=== PATIENT | female | born 1940 | race Caucasian/White ===

== ENCOUNTER 2020-06-29 06:53 | Outpatient (RCR) | payer MEDICARE, SELFPAY ==
[2020-06-29] MEDS: COVID-19 VACC, MRNA(PFIZER)/PF 30 MCG/0.3 ML SYRINGE IM (16:27)
[2020-07-20] MEDS: COVID-19 VACC, MRNA(PFIZER)/PF 30 MCG/0.3 ML SYRINGE IM (15:55)
== END 2020-10-03 23:59 ==
LOC: IMMUN 06:53
PROVIDERS: PCP Family Medicine; Referring Provider Family Medicine; Visit Provider Family Medicine
DX: Z23 Encounter for immunization (principal)
CPT/HCPCS: 0001A; 0002A; 91300

== ENCOUNTER → 2024-08-26 | Outpatient (CLI) | payer MEDICARE, SELFPAY ==
[2024-08-26 14:23] LABS: Hematocrit 46.1 % (37-47); Hemoglobin 14.6 g/dL (12.0-15.0); Mean Corp Hgb Conc 31.7 g/dL (32-36); Mean Corpuscular Hgb 30.9 pg (27.0-32.0); Mean Corpuscular Volume 97.7 fL (81-99); Mean Platelet Vol. 9.1 fl (6.2-12.0); Platelet Count 225 K/mm3 (150-450); RBC Distribution Width CV 13.2 % (11.6-14.6); RBC Distribution Width SD 46.9 fl (35.1-43.9); Red Blood Count 4.72 M/mm3 (4.2-5.4); White Blood Count 7.9 K/mm3 (4.4-11.0)
[2024-08-26 15:23] LABS: Anion Gap 10 (5-15); BUN 48 mg/dL (4-19); BUN/Creat Ratio 20.1 RATIO (10-20); Calcium,Total 9.4 mg/dL (7.6-11.0); Carbon Dioxide 25.1 mmol/L (21.0-32.0); Chloride 106 mmol/L (98-108); Creatinine, Serum 2.38 mg/dL (0.70-1.20); EST Glomerular Filtration Rate 20 (>60); Glucose 80 mg/dL (70-99); Potassium 4.7 mmol/L (3.3-5.1); Sodium Level 141 mmol/L (133-145)
== END | disposition home or self-care (01) ==
PROVIDERS: PCP Family Medicine; Referring Provider Surgery Trauma Surgery; Visit Provider Surgery Trauma Surgery
DX: Z01.818 Encounter for other preprocedural examination (principal)
CPT/HCPCS: 36415; 80048; 85027

== ENCOUNTER 2024-09-02 08:22 | Day surgery (SDC) | payer MEDICARE, SELFPAY ==
--- NOTE | 2024-08-30 14:07 | PAT.ANESEVAL ---
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 When Was Last Pacemaker Check QUESTION #4 FULL TEXT: You/Your Family Experience fever (hyperthermia) with Anesthesia Last Oral Intake Last Oral intake: Last Oral Intake NPO since Meds taken in AM with sips of water? 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 Female Yes 08/23/24 14:57 HX of Motion Sickness No 08/23/24 14:57 HX of N/V After Surgery No 08/23/24 14:57 Non-Smoker Yes 08/23/24 14:57 Duration of Surgery greater No 08/23/24 14:57 than 60 minutes Number of Risk Factors 2 08/23/24 14:57 PONV Score Moderate Risk 08/23/24 14:57 Height & Weight Height & Weight: Anesthesia: Height & Weight Height 5 ft 2 in 08/16/24 14:46 Respiratory Assessment Respiratory Assessment - regional owner operator truck driver: Respiratory Tract Infection Hx - regional owner operator truck driver Hx Respiratory Tract Infection No 08/23/24 14:57 STOP Sleep Apnea STOP Sleep Apnea - regional owner operator truck driver: STOP Sleep Apnea - regional owner operator truck driver Hx Hypertension Yes: CONTROLLED WITH MED 08/23/24 14:57 Hx Sleep Apnea No 08/23/24 14:57 CPAP BIPAP Do you snore loudly (louder No 08/23/24 14:57 than talking or can be heard Do you often feel tired/ No 08/23/24 14:57 fatigued/ sleepy during daytime? Has anyone observed you stop No 08/23/24 14:57 breathing during sleep? STOP Results Negative 08/23/24 14:57 QUESTION #5 FULL TEXT : Do you snore loudly (louder than talking or can be heard through closed doors)? 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 Tobacco Use Smoking Status Former smoker 08/23/24 14:57 Hx Tobacco Use No 08/23/24 14:57 Years Smoking Packs Smoked per Day Smoking Cessation Date was No - quit smoking greater 08/23/24 14:57 within the last 15 years than 15 years ago Hx Smoking Cessation Date 05/07/09 08/23/24 14:57 Hx Smoking Cessation Counseling Hematologic Medial History Hematologic Hx - regional owner operator truck driver: Hematologic Medical Hx - change management Hx of Blood Transfusion No 08/23/24 14:57 Hx of Transfusion in last 3 No 08/23/24 14:57 Months Date of Last Transfusion (if within last 3 months) Ever experience any problems No 08/23/24 14:57 with transfusion(s)? Specify any problems Hx of Preganancy in last 3 N/A 08/23/24 14:57 Months Nurse Filling Out Transfusion [facility]BU[facility] 08/23/24 14:57 & Questions: Date: 08/23/24 08/23/24 14:57 Time: 15:03 08/23/24 14:57 Patient unable to answer at this time (ie. confused, unrespo /Reproduction History /Reproductive History - regional owner operator truck driver: /Reproductive Hx- regional owner operator truck driver Hx Now No 08/23/24 14:57 Gestational Age (in weeks): EDC: Hx Hx Para Hx Section SAB No 08/23/24 14:57 PFSH Medical History (Updated 08/23/24 @ 15:12 by Jennifer Gill) Wears hearing aid Loss of hearing Wears glasses Wears dentures Post-menopausal Cancer Bipolar disorder Hypothyroid Diabetes Thyroid disease Ambulates with cane Walker as ambulation aid History of renal disease Spinal stenosis Tremor of both hands Arthritis Shortness of breath on exertion Former smoker Hypertension Femur fracture CKD (chronic kidney disease) Type 2 diabetes mellitus Home Medications ?Medication ?Instructions ?Recorded ?Last Taken ?Type albuterol sulfate 90 mcg/actuation 2 puff inhalation Q4H PRN 07/29/24 Unknown History aerosol inhaler shortness of breath or wheezing aripiprazole 5 mg tablet (Abilify) 5 mg PO QDAY 07/29/24 Unknown History buprenorphine 10 mcg/hour weekly 1 patch transdermal Q7D 07/29/24 Unknown History transdermal patch bupropion HCl 300 mg 24 hr tablet, 300 mg PO QAM 07/29/24 Unknown History extended release (Wellbutrin XL) empagliflozin 25 mg tablet 25 mg PO QAM 07/29/24 Unknown History (Jardiance) fluticasone propionate 50 1 spray intranasal QDAY PRN nasal 07/29/24 Unknown History mcg/actuation nasal congestion spray,suspension levothyroxine 50 mcg tablet 50 mcg PO QDAY 07/29/24 Unknown History (Synthroid) metoprolol succinate 50 mg 50 mg PO QDAY 07/29/24 Unknown History tablet,extended release 24 hr oxycodone-acetaminophen 5 mg-325 1 tab PO Q8H PRN pain 07/29/24 Unknown History mg tablet quetiapine 25 mg tablet (Seroquel) 25 mg PO QHS 07/29/24 Unknown History torsemide 10 mg tablet 10 mg PO QDAY PRN FLUID RETENTION 07/29/24 Unknown History verapamil 360 mg 24 hr 360 mg PO QHS 07/29/24 Unknown History capsule,extended release cyanocobalamin (vitamin B-12) 1,000 mcg PO QDAY 08/16/24 Unknown History 1,000 mcg capsule docusate sodium 50 mg capsule 50 mg PO TID 08/16/24 Unknown History (Colace Clear) finerenone 10 mg tablet (Kerendia) 10 mg PO QDAY 08/16/24 Unknown History vuwfdgod-rxymymon-msxdh acid 240 1 tab PO QDAY 08/16/24 Unknown History mcg-vit K1 150 mcg-herb 357 tablet (Alive Women's 50 Plus Ultra Multivitamin) sevelamer carbonate 800 mg tablet 800 mg PO TID 08/16/24 Unknown History Allergy/AdvReac Type Severity Reaction Status Date / Time No Known Allergies Allergy Verified 08/23/24 14:52 Family History Other Diabetes Heart disease Hypercholesterolemia Hypertension Surgical History (Updated 08/23/24 @ 15:12 by Jennifer Gill) H/O local excision of skin lesion S/P open reduction and internal fixation (ORIF) of fracture of lateral condyle of right femur S/P open reduction and internal fixation (ORIF) of fracture of lateral condyle of left femur Social History Smoking Status: Former smoker alcohol intake: never substance use type: does not use additional social history: Denies daily aspirin or ibuprofen use. Audit: Pertinent Findings Current Visit Impressions Current Visit Impressions: Creatinine is stable from past records compared to most recent result and has known history of CKD5. Recommendation Anesthesia Recommendation Anesthesia recommendation: OPTIMIZED for anesthesia
[2024-09-02] VITALS (9 sets, daily range): BP systolic 118–171; BP diastolic 40–70; PULSE 38–55; RESP 16–18; TEMP 36.6–37; O2SAT 92–97; BMI 36.3
--- NOTE | 2024-09-02 09:01 | EKG12_ITS ---
Test Reason : PRE OP Blood Pressure : */* mmHG Vent. Rate : 40 BPM Atrial Rate : 40 BPM P-R Int : 148 ms QRS Dur : 94 ms QT Int : 502 ms P-R-T Axes : * -18 90 degrees QTcB Int : 409 ms Marked sinus bradycardia Abnormal ECG No previous ECGs available Confirmed by Kartik Santiago ([id number]), graphic editor BECKIE TAPIA ([id number]) on 09/06/2024 11:57:32 AM Referred By: Tez Cm Confirmed By: Kartik Santiago
[2024-09-02] MEDS: 0.9% Normal Saline (500mL Bag) 500 ML 15 ML IV (09:10)
--- NOTE | 2024-09-02 10:14 | PCM.PRE.AN2 ---
ASA Classification* ASA Classification ASA Classification: 3 Assessment & Plan Anesthesia* Anesthesia Assessment Anesthesia Assessment: Discussed sedation and/or anesthesia options, risks, benefits, and alternatives with patient/parents/legal guardian/POA. Questions invited. The patient/parents/legal guardian/POA seems to understand and agrees to proceed with anesthesia plan. Reviewed the physical assessment, medical history, allergy history and patient home medications list prior to surgery/procedure/anesthetic and documented any changes. Performed airway and anesthesia risk assessments. Anesthesia Type Anesthesia Type: MAC History Source History Obtained from:: Patient and Chart Anesthesia Focused Assessment* Temperature: 97.8 F Pulse Rate: 38 Blood Pressure: 171/40 Respiratory Rate: 18 Pulse Ox: 97 Oxygen Delivery Method: Room Air Airway Assessment Mouth opens: >3 cm Mallampati Score: III Teeth Condition: Dentures (Full upper and lower dentures. They are out.) Neck Range of motion (ROM): Limited ROM (Slight decrease in extension) Focused Labs Anesthesia Preop lab: CBC WBC 7.9 K/mm3 (4.4-11.0) 08/26/24 13:51 08/26/24 RBC 4.72 M/mm3 (4.2-5.4) 08/26/24 13:51 08/26/24 Hgb 14.6 g/dL (12.0-15.0) 08/26/24 13:51 08/26/24 Hct 46.1 % (37-47) 08/26/24 13:51 08/26/24 Plt Count 225 K/mm3 (150-450) 08/26/24 13:51 08/26/24 CHEMISTRY Potassium 4.7 mmol/L (3.3-5.1) 08/26/24 13:51 08/26/24 Sodium 141 mmol/L (133-145) 08/26/24 13:51 08/26/24 BUN 48 mg/dL (4-19) H 08/26/24 13:51 08/26/24 Creatinine 2.38 mg/dL (0.70-1.20) H 08/26/24 13:51 08/26/24 Glucose 80 mg/dL (70-99) 08/26/24 13:51 08/26/24 COAG Pre-Assessment Diagnosis/Proposed Procedure Planned Operative Procedure(s): (R) Right Arm Arteriovenous Fistula,Creation Anesthesia History 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 When Was Last Pacemaker Check QUESTION #4 FULL TEXT: You/Your Family Experience fever (hyperthermia) with Anesthesia Last Oral Intake Last Oral intake: Last Oral Intake NPO since 05:00 09/02/24 09:20 Meds taken in AM with sips of Yes 09/02/24 09:20 water? 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 Female Yes 08/23/24 14:57 HX of Motion Sickness No 08/23/24 14:57 HX of N/V After Surgery No 08/23/24 14:57 Non-Smoker Yes 08/23/24 14:57 Duration of Surgery greater No 08/23/24 14:57 than 60 minutes Number of Risk Factors 2 08/23/24 14:57 PONV Score Moderate Risk 08/23/24 14:57 Height & Weight Height & Weight: Anesthesia: Height & Weight Height 5 ft 2 in 09/02/24 09:20 Weight: 90.3 kg 09/02/24 09:20 Body Mass Index (BMI) 36.3 09/02/24 09:20 Respiratory Assessment Respiratory Assessment - real estate investor: Respiratory Tract Infection Hx - real estate investor Hx Respiratory Tract Infection No 08/23/24 14:57 STOP Sleep Apnea STOP Sleep Apnea - real estate investor: STOP Sleep Apnea - real estate investor Hx Hypertension Yes: CONTROLLED WITH MED 08/23/24 14:57 Hx Sleep Apnea No 08/23/24 14:57 CPAP BIPAP Do you snore loudly (louder No 08/23/24 14:57 than talking or can be heard Do you often feel tired/ No 08/23/24 14:57 fatigued/ sleepy during daytime? Has anyone observed you stop No 08/23/24 14:57 breathing during sleep? STOP Results Negative 08/23/24 14:57 QUESTION #5 FULL TEXT : Do you snore loudly (louder than talking or can be heard through closed doors)? 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 Specify any problems Hx of Preganancy in last 3 N/A 08/23/24 14:57 Months Nurse Filling Out Transfusion [facility] 08/23/24 14:57 & Questions: Date: 08/23/24 08/23/24 14:57 Time: 15:03 08/23/24 14:57 Patient unable to answer at this time (ie. confused, unrespo /Reproduction History /Reproductive History - real estate investor: /Reproductive Hx- real estate investor Hx Now No 08/23/24 14:57 Gestational Age (in weeks): EDC: Hx Hx Para Hx Section SAB No 08/23/24 14:57 Active Medications Active Medications: Current Medications Generic Name Dose Route Start Last Admin Trade Name Freq PRN Reason Stop Dose Admin Cefazolin Sodium 2 gm/ Sodium 110 mls @ 150 mls/hr 09/02/24 10:30 Chloride IV 09/02/24 11:13 INTRAOP ONE Sodium Chloride 500 mls @ 0 mls/hr 09/02/24 08:30 09/02/24 09:10 IV 15 mls/hr .Q0M XOCHILT Administration KVO PFSH Medical History Wears hearing aid Loss of hearing Wears glasses Wears dentures Post-menopausal Cancer Bipolar disorder Hypothyroid Diabetes Thyroid disease Ambulates with cane Walker as ambulation aid History of renal disease Spinal stenosis Tremor of both hands Arthritis Shortness of breath on exertion Former smoker Hypertension Femur fracture CKD (chronic kidney disease) Type 2 diabetes mellitus Home Medications ?Medication ?Instructions ?Recorded ?Last Taken ?Type albuterol sulfate 90 mcg/actuation 2 puff inhalation Q4H PRN 07/29/24 Unknown History aerosol inhaler shortness of breath or wheezing aripiprazole 5 mg tablet (Abilify) 5 mg PO QDAY 07/29/24 09/02/24 05:00 History buprenorphine 10 mcg/hour weekly 1 patch transdermal Q7D 07/29/24 08/27/24 History transdermal patch bupropion HCl 300 mg 24 hr tablet, 300 mg PO QAM 07/29/24 09/02/24 05:00 History extended release (Wellbutrin XL) empagliflozin 25 mg tablet 25 mg PO QAM 07/29/24 08/28/24 History (Jardiance) fluticasone propionate 50 1 spray intranasal QDAY PRN nasal 07/29/24 Unknown History mcg/actuation nasal congestion spray,suspension levothyroxine 50 mcg tablet 50 mcg PO QDAY 07/29/24 09/02/24 05:00 History (Synthroid) metoprolol succinate 50 mg 50 mg PO QDAY 07/29/24 09/02/24 05:00 History tablet,extended release 24 hr oxycodone-acetaminophen 5 mg-325 1 tab PO Q8H PRN pain 07/29/24 09/02/24 05:00 History mg tablet quetiapine 25 mg tablet (Seroquel) 25 mg PO QHS 07/29/24 09/01/24 21:30 History torsemide 10 mg tablet 10 mg PO QDAY PRN FLUID RETENTION 07/29/24 09/01/24 History verapamil 360 mg 24 hr 360 mg PO QHS 07/29/24 09/01/24 18:00 History capsule,extended release cyanocobalamin (vitamin B-12) 1,000 mcg PO QDAY 08/16/24 09/01/24 History 1,000 mcg capsule docusate sodium 50 mg capsule 50 mg PO TID 08/16/24 09/02/24 05:00 History (Colace Clear) finerenone 10 mg tablet (Kerendia) 10 mg PO QDAY 08/16/24 09/02/24 05:00 History qpiaqnss-tzvmszoh-jwpxg acid 240 1 tab PO QDAY 08/16/24 09/01/24 History mcg-vit K1 150 mcg-herb 357 tablet (Alive Women's 50 Plus Ultra Multivitamin) sevelamer carbonate 800 mg tablet 800 mg PO TID 08/16/24 09/01/24 17:00 History Allergy/AdvReac Type Severity Reaction Status Date / Time Fish Containing Products AdvReac Intermediate Hives Verified 09/02/24 09:40 shellfish derived AdvReac Intermediate Hives Verified 09/02/24 09:40 Family History Other Diabetes Heart disease Hypercholesterolemia Hypertension Surgical History H/O local excision of skin lesion S/P open reduction and internal fixation (ORIF) of fracture of lateral condyle of right femur S/P open reduction and internal fixation (ORIF) of fracture of lateral condyle of left femur Social History Smoking Status: Former smoker alcohol intake: never substance use type: does not use additional social history: Denies daily aspirin or ibuprofen use. Review of Systems (Anesthesia) ROS Narrative System reviewed and no additional complaints, except as documented.
--- NOTE | 2024-09-02 10:50 | PCM.HP.BLA ---
History and Physical Allergies No Known Allergies Allergy (Unverified 08/16/24 14:34) Medications ?Medication ?Instructions ?Recorded ?Confirmed ?Type albuterol sulfate 90 mcg/actuation 2 puff inhalation Q4H PRN 07/29/24 07/29/24 History aerosol inhaler aripiprazole 5 mg tablet (Abilify) 5 mg PO QDAY 07/29/24 07/29/24 History buprenorphine 10 mcg/hour weekly 1 patch transdermal Q7D 07/29/24 07/29/24 History transdermal patch bupropion HCl 300 mg 24 hr tablet, 300 mg PO QAM 07/29/24 07/29/24 History extended release (Wellbutrin XL) empagliflozin 25 mg tablet 25 mg PO QAM 07/29/24 07/29/24 History (Jardiance) fluticasone propionate 50 1 spray intranasal QDAY PRN 07/29/24 07/29/24 History mcg/actuation nasal spray,suspension levothyroxine 50 mcg tablet 50 mcg PO QDAY 07/29/24 07/29/24 History (Synthroid) metoprolol succinate 50 mg 50 mg PO QDAY 07/29/24 07/29/24 History tablet,extended release 24 hr oxycodone-acetaminophen 5 mg-325 1 tab PO Q8H PRN 07/29/24 07/29/24 History mg tablet quetiapine 25 mg tablet (Seroquel) 37.5 mg PO QDAY 07/29/24 07/29/24 History torsemide 10 mg tablet 10 mg PO QDAY PRN 07/29/24 07/29/24 History verapamil 360 mg 24 hr 360 mg PO QAM 07/29/24 07/29/24 History capsule,extended release cyanocobalamin (vitamin B-12) 1,000 mcg PO QDAY 08/16/24 08/16/24 History 1,000 mcg capsule docusate sodium 50 mg capsule 50 mg PO TID 08/16/24 08/16/24 History (Colace Clear) finerenone 10 mg tablet (Kerendia) 10 mg PO QDAY 08/16/24 08/16/24 History idcrolpn-ejcslrtd-ndkvk acid 240 1 tab PO QDAY 08/16/24 08/16/24 History mcg-vit K1 150 mcg-herb 357 tablet (Alive Women's 50 Plus Ultra Multivitamin) sevelamer carbonate 800 mg tablet 800 mg PO TID 08/16/24 08/16/24 History Have you fallen in the past year?: No PFSH Medical History Femur fracture CKD (chronic kidney disease) Type 2 diabetes mellitus Surgical History S/P open reduction and internal fixation (ORIF) of fracture of lateral condyle of right femur S/P open reduction and internal fixation (ORIF) of fracture of lateral condyle of left femur Family History Other Diabetes Heart disease Hypercholesterolemia Hypertension Social History Smoking Status: Former smoker alcohol intake: never substance use type: does not use additional social history: Denies daily aspirin or ibuprofen use. HPI HPI HPI: ELOISE SHORE, is a 83 F who presents to the office today for evaluation for dialysis access. She has been followed for several years chronic renal decline due to HTN/DM and medication with lithium treating bipolar disorder. She is right hand dominant, no prior arm or clavicle fractures/pacer/picc/node dissection. She had vein mapping at an outside facility with reports available. ROS General General: No weight change, fatigue, colon cancer or breast cancer HEENT HEENT: No difficulty swallowing, eye surgery or swollen glands Endo Endocrine: Yes thyroid disease and diabetes mellitus; No thyroid cancer Skin Skin: No rash or changing moles Musc Musculoskeletal: Yes back problems and arthritis; No rheumatoid arthritis or gout Cardio Cardiovascular: Yes high blood pressure; No murmur, pacemaker, heart disease, atrial fibrillation, heart attack or heart stent Psych Psychiatric: No depression or anxiety Resp Respiratory: Yes shortness of breath, No sleep apnea, No cough, No COPD, No asthma and No emphysema Gastro Gastrointestinal: No abdominal pain, No nausea or vomiting, No diarrhea, No constipation, No blood in stool, No acid reflux, No hemorrhoids, No ulcers, No gallbladder problem and No black,tarry stools [place] Hematologic: No blood thinners, No blood disorders, No bleeding, No anemia and No blood clots Neuro Neurologic: No numbness, No tingling and No other (Stroke/TIA) Exam Const General: cooperative, healthy appearing, comfortable, no acute distress and well developed Nutritional Appearance: well nourished Orientation: alert, awake and oriented x3 HENMT Head: normocephalic and atraumatic Ears: hearing grossly normal bilaterally Nose: external nose normal Eyes General: appearance normal, both eyes and all related structures EOM: EOM intact bilaterally Neck Neck: normal visual inspection, full ROM and trachea midline Resp Effort & Inspection: normal respiratory effort, able to speak in complete sentences, symmetric chest movement, no audible wheezes, not labored, no stridor and no use of accessory muscles Cardio Rate: regular rate Rhythm: regular rhythm Pulses: brachial pulses present and radial pulses present Skin General: no rashes or lesions noted and no erythema Wounds: no wounds Neuro Cranial Nerves: CN's II-XI intact bilaterally and EOM intact bilaterally Speech: speech normal Gait: normal gait Motor: strength 5/5 throughout Sensory Exam: no sensory deficits noted Psych Appearance: grossly normal and well kempt Mental Status: mental status grossly normal Mood: congruent mood Speech and Movement: speech and movement normal Thought Content: normal Judgment: judgment good Coding Level of Care Code Off vis,new,level 4 Diagnoses Stage 4 chronic kidney disease N18.4 Chronic kidney disease stage: stage 4 (GFR 15-29) Assessment and Plan Assessment and Plan (1) CKD (chronic kidney disease): Status: Chronic Qualifiers: Chronic kidney disease stage: stage 4 (GFR 15-29) Qualified Code(s): N18.4 - Chronic kidney disease, stage 4 (severe) Plan: -vein mapping reveals adequate right basilic, upper and lower arm cephalic -also reveals very small caliber right radial artery and left brachial artery not ideal to support access creation -plan for right upper arm cephalic fistula creation
[2024-09-02 11:22] LABS: Bedside Glucose 103 mg/dL (74-106)
[2024-09-02] MEDS: Cefazolin 2 GM in 0.9% Normal Saline (100mL Bag) 100 ML IV (11:42)
[2024-09-02] MEDS: Protamine Sulfate 50 MG/5 ML Vial IV (11:59)
[2024-09-02] MEDS: Heparin 10,000 UNITS/10 ML Vial 10000 UNITS (12:25)
--- NOTE | 2024-09-02 13:13 | DCINST_ITS ---
Discharge Instructions Diet Discharge Diet: No restrictions Activity May shower in (days): 2 Lifting Restrictions: do not lift > 20 lbs with right arm for 3 weeks Additional Activity Instructions:: do not submerge incision for 3 weeks Dressing / Incision Call your doctor if your incision/area has: Sudden Increased Bleeding, Increased Pain/ Swelling, Increased Redness and Foul Smelling Discharge Call your doctor if you observe: Coldness, Increased Pain and Numbness or Tingling Remove Dressing in: 2 days Cleanse incision/area with: Soap & Water Follow Up Care Test Results: Test results from this visit will be discussed in further detail at your follow- up appointment, if applicable. Discharge Plan Admission Attending Provider: Tez Cm Primary Care Provider: Nallely Bowen Instructions Print Language: Persian Discharge Orders/Prescriptions Prescriptions: New oxycodone 5 mg tablet 5 mg PO Q8H PRN (Reason: pain) 1 Days Qty: 3 0RF Continued metoprolol succinate 50 mg tablet extended release 24 hr 50 mg PO QDAY albuterol sulfate 90 mcg/actuation HFA aerosol inhaler 2 puff inhalation Q4H PRN (Reason: shortness of breath or wheezing) buprenorphine 10 mcg/hour patch weekly 1 patch transdermal Q7D oxycodone-acetaminophen 5-325 mg tablet 1 tab PO Q8H PRN (Reason: pain) aripiprazole [Abilify] 5 mg tablet 5 mg PO QDAY bupropion HCl [Wellbutrin XL] 300 mg tablet extended release 24 hr 300 mg PO QAM quetiapine [Seroquel] 25 mg tablet 25 mg PO QHS fluticasone propionate 50 mcg/actuation spray,suspension 1 spray intranasal QDAY PRN (Reason: nasal congestion) Rx Instructions: administer into each nostril levothyroxine [Synthroid] 50 mcg tablet 50 mcg PO QDAY verapamil 360 mg capsule,ext rel. pellets 24 hr 360 mg PO QHS Jardiance 25 mg tablet 25 mg PO QAM torsemide 10 mg tablet 10 mg PO QDAY PRN (Reason: FLUID RETENTION) Kerendia 10 mg tablet 10 mg PO QDAY sevelamer carbonate 800 mg tablet 800 mg PO TID Alive Women's 50 Plus Ultra MV 240-150 mcg tablet 1 tab PO QDAY cyanocobalamin (vitamin B-12) 1,000 mcg capsule 1,000 mcg PO QDAY Colace Clear 50 mg capsule 50 mg PO TID Referrals / Follow Up: Nallely Bowen DO [Primary Care Provider] - Disposition Disposition (needs filled in before D/C Order can be placed): Home, Self Care
--- NOTE | 2024-09-02 13:19 | OP.PCM_ITS ---
Operative Report (Standard) Operative Information Date of Procedure: 09/02/24 Pre-Operative Diagnosis: CKD Post-Operative Diagnosis: same Surgery/Procedure Performed: right brach-ceph fistula creation chemical compounder: Yes Tip Cutter: Blossom Gold Tasks completed by first aid instructor: Opening, Closing, Opening & closing, Hemostasis: Tie and Retracting Type of Anesthesia: Local MAC, Local and MAC RN Documented Start/Stop Times: Operation Date: 09/02/24 10:30 Case Time Into Pre-Op 09/02/24 08:26 Anesthesia Start 09/02/24 11:42 Into Room 09/02/24 11:42 Procedure Start 09/02/24 12:08 Procedure End 09/02/24 13:21 Anesthesia End 09/02/24 13:27 Out of Room 09/02/24 13:27 Into Recovery 09/02/24 13:30 Into Phase II Recovery 09/02/24 14:06 Out of Recovery 09/02/24 14:06 Out of Phase II 09/02/24 14:57 Procedure Start Time: 12:10 Procedure Stop Time: 13:20 Select all DRAINS/GRAFTS/IMPLANTS that apply: None Estimated Blood Loss: 3 Specimen collected: No Description of surgery: HPI: Patient is an 83-year-old female with chronic kidney disease not on dialysis. She had preoperative vein mapping which revealed adequate right upper arm cephalic vein and adequate brachial artery with normal triphasic waveforms. She presents now for right brachiocephalic fistula creation. Description of procedure: Upon obtaining informed consent and verification correct patient procedure site patient taken to the operating where she was positioned prepped and draped in usual sterile fashion. Time was performed and moderate sedation administered by anesthesia. Ultrasound was used to evaluate the cephalic vein and its relation to the brachial artery. Distal to the antecubital crease the cubital branch and grinder set up operator thread tool were noted to be of adequate caliber and with close proximity of the brachial artery. Skin overlying the vessel at this location was anesthetized with 1% lidocaine quarter percent Marcaine and transverse incision made 1 fingerbreadth distal to the antecubital crease. Bovie was used to dissect down to the subcutaneous tissue and self-retaining retractors put in position. Once the vein was identified sharp dissection was used to dissect free proximal and distal with adequate caliber vein with mild scarring from prior venous access noted. The vein was then retracted laterally and Bovie used to dissect immediately to the fascia which was then incised in cruciate configuration exposing the brachial artery. Sharp dissection was used to dissect for the vessel proximal and distal with care taken to identify and protect adjacent nerve and vein structures. A right angle was used to place vessel loop proximal and distal and the patient was then heparinized allowed to circulate for 3 minutes. The cephalic vein distal in the surgical field as well as the distal most aspect of the grinder set up operator thread tool vein were ligated with silk ties and divided. The vein was then dilated up to 3 and half millimeters and flushed with heparinized saline. There was not enough length for the bifurcation to reach the brachial artery in the grinder set up operator thread tool vein did not have enough length to reach either so that the grinder set up operator thread tool branch was ligated in the distal extent of the cephalic vein utilized for the anastomosis. The brachial artery was then occluded with Vesseloops and longitudinal arteriotomy created with 11 blade extended with Villalta scissors. The vein was then beveled to match the arteriotomy and anastomosis performed and a 6-0 Prolene in a running fashion. Prior to completing suture line the vessels are backbled and after completing the suture line clamps removed and satisfactory stasis was noted. There is a palpable thrill in the fistula and a palpable radial pulse at the wrist. Heparin was then reversed with protamine and the incision inspected for hemostasis. The incision was then closed with 3-0 Vicryl followed by 4 Monocryl and Dermabond for the skin. The patient was then taken to the recovery room with anticipated discharge to home. Surgical Findings: +thrill, +radial pulse Complications Complications: No
[2024-09-02] MEDS: Lidocaine 1% (20 ml mdv) 20 ML Vial (13:23)
[2024-09-02] MEDS: Bupivacaine 0.25% 30 ML Vial (13:23)
--- NOTE | 2024-09-02 13:34 | PCM.POST.ANE ---
Anesthesia: Postop Eval I Current Vital Signs Temperature: 98.6 F Pulse Rate: 55 Blood Pressure: 118/53 Respiratory Rate: 16 Pulse Ox: 97 Assessment Airway patent: Yes Spontaneous unlabored respirations: Yes nausea: No Vomiting: No Anesthesia Complication: No Fluid Hydration Crystalloid volume administer (ml): 400 Total IV fluid infused: 400 Progress Note Anesthesia document: Postop Eval 1 completed: Yes
--- NOTE | 2024-09-02 15:38 | POSTOPAN2_ITS ---
Anesthesia Postop Eval I Sum Postop Eval Completion status Anesthesia document: Postop Eval 1 completed: Yes Anesthesia Postop Eval I Summary Anesthesia Postop Eval I Summary: Anesthesia Postop Eval I: Assessment Summary Airway patent Yes 09/02/24 13:34 [email or web address] Spontaneous unlabored Yes 09/02/24 13:34 [email or web address] respirations Mental status nausea No 09/02/24 13:34 [employer] [email or web address] Vomiting No 09/02/24 13:34 [employer] [email or web address] Anesthesia Postop Eval I: Fluid Summary Crystalloid volume administer 400 09/02/24 13:34 [employer] [email or web address] (ml) Colloids volume administered ( ml) Blood Product volume administered (ml) Total IV fluid infused 400 09/02/24 13:34 [employer] [email or web address] Anesthesia Postop Eval I: Summary Notes Anesthesia Complication No 09/02/24 13:34 [email or web address] [email or web address] Anesthesia Complication Comment: Post-operative progress note Anesthesia: Postop Eval II Evaluation Mental status: Awake and Calm Pain Level: 0 nausea: No Vomiting: No Complications Anesthesia Complication: No
--- NOTE | 2024-09-02 15:38 | PCM.POSTANE2 ---
Anesthesia Postop Eval I Sum Postop Eval Completion status Anesthesia document: Postop Eval 1 completed: Yes Anesthesia Postop Eval I Summary Anesthesia Postop Eval I Summary: Anesthesia Postop Eval I: Assessment Summary Airway patent Yes 09/02/24 13:34 [employer].[email or web address] Spontaneous unlabored Yes 09/02/24 13:34 [employer].[email or web address] respirations Mental status nausea No 09/02/24 13:34 [employer].[email or web address] Vomiting No 09/02/24 13:34 [email or web address] Anesthesia Postop Eval I: Fluid Summary Crystalloid volume administer 400 09/02/24 13:34 [employer].[email or web address] (ml) Colloids volume administered ( ml) Blood Product volume administered (ml) Total IV fluid infused 400 09/02/24 13:34 [email or web address] Anesthesia Postop Eval I: Summary Notes Anesthesia Complication No 09/02/24 13:34 [employer].[email or web address] Anesthesia Complication Comment: Post-operative progress note Anesthesia: Postop Eval II Evaluation Mental status: Awake and Calm Pain Level: 0 nausea: No Vomiting: No Complications Anesthesia Complication: No
== END 2024-09-02 14:57 | disposition home or self-care (01) ==
LOC: SDC 08:25 → AC 08:26
PROVIDERS: PCP Family Medicine; Referring Provider Surgery Trauma Surgery; Visit Provider Surgery Trauma Surgery
PROC: (CPT 36818; principal; 2024-09-02 10:15)
DX: Z49.01 Encounter for fitting and adjustment of extracorporeal dialysis catheter (principal); N18.4 Chronic kidney disease, stage 4 (severe); F31.9 Bipolar disorder, unspecified; E11.22 Type 2 diabetes mellitus with diabetic chronic kidney disease; I12.9 Hypertensive chronic kidney disease with stage 1 through stage 4 chronic kidney disease, or unspecified chronic kidney disease; Z87.891 Personal history of nicotine dependence; Z79.899 Other long term (current) drug therapy; E03.9 Hypothyroidism, unspecified; Z79.890 Hormone replacement therapy; Z79.84 Long term (current) use of oral hypoglycemic drugs
CPT/HCPCS: 36818; 01844; 82962; 93005; A4648; A4216